=== PATIENT | male | born 1955 | race Caucasian/White ===

== ENCOUNTER 2022-05-09 11:28 | Emergency (ER) | payer MEDICARE ==
[~2022-05-09] VITALS: Ht 188 cm; Wt 95.9 kg
[2022-05-09 11:52] VITALS: BP 138/87
[2022-05-09] MEDS ORDERED: ketorolac trometh. 30mg/ml inj. IM ONE (12:30)
[2022-05-09] MEDS ORDERED: HYDROcodone/acetaminophen 10/325mg tab PO ONE (12:30)
[2022-05-09] MEDS ORDERED: HYDR-3972 PO ×2 (14:40→15:03)
== END 2022-05-09 12:57 | disposition home or self-care (01) ==
LOC: ER 11:29
DX: S22.31XA Fracture of one rib, right side, initial encounter for closed fracture (principal); X58.XXXA Exposure to other specified factors, initial encounter; Y93.89 Activity, other specified; Y92.89 Other specified places as the place of occurrence of the external cause; Y99.8 Other external cause status
CPT/HCPCS: 71101; 96372; 99283; J1885